=== PATIENT | female | born 1975 | race Hispanic/Latino ===

== ENCOUNTER 2024-09-30 12:13 | Emergency (ER) | payer OTHER, SELFPAY ==
[2024-09-30 12:27] VITALS: BP 153/104
[2024-09-30 12:47] LABS: % Basophils 0.8 % (0-2); % Eosinophils 1.9 % (0-6); % Immature Granulocytes 0.6 % (0-0.5); % Lymphocytes 24.2 % (20.5-51.1); % Monocytes 3.9 % (1.7-9.3); % Neutrophils 68.6 % (42.2-75.2); Absolute Basophils 0.1 10^3/uL (0-0.2); Absolute Eosinophils 0.2 10^3/uL (0-0.7); Absolute Immature Granulocytes 0.1 10^3/uL (0-0.05); Absolute Lymphocytes 2.2 10^3/uL (1.2-3.4); Absolute Monocytes 0.4 10^3/uL (0.1-0.6); Absolute Neutrophils 6.2 10^3/uL (1.4-6.5); Hematocrit 34.1 % (37.0-47.0); Hemoglobin 11.6 g/dL (12.0-16.0); Mean Corpuscular Hgb 28.6 pg (27.0-31.0); Mean Platelet Volume 8.3 fL (7.4-10.4); Nucleated Red Blood Cells % 0 %; Platelet Count 428 10^3/uL (130-400); Red Blood Cell Count 4.06 10^6/uL (4.20-5.40); Red Cell Dist. Width 12.8 % (11.5-14.5); White Blood Cell Count 9.1 10^3/uL (4.8-10.8)
[2024-09-30 13:02] LABS: HCG, Serum Qualitative Screen Negative
[2024-09-30 13:03] LABS: ALT (SGPT) 20 U/L (0-35); AST (SGOT) 23 U/L (14-36); Albumin 3.8 g/dl (3.5-5.0); Alkaline Phosphatase 71 U/L (38-126); Blood Urea Nitrogen 14 mg/dl (7-17); Calcium 9.3 mg/dl (8.4-10.2); Carbon Dioxide 21 mmol/L (22-30); Chloride 108 mmol/L (98-107); Glucose 174 mg/dl (70-99); Potassium 3.7 mmol/L (3.5-5.1); Sodium 138 mmol/L (135-145); Total Bilirubin 0.4 mg/dl (0.2-1.3); Total Protein 6.5 g/dl (6.3-8.2); eGFR > 60.00
[2024-09-30 14:16] VITALS: BP 114/86
--- NOTE | 2024-09-30 14:39 | ED.GENMED ---
History of Present Illness
General
Chief Complaint: Vaginal Bleeding
Source: patient
Exam Limitations: none
Time Seen by Provider: 09/30/24 13:48
Nursing documentation reviewed up to this point in time: agreed with
History of Present Illness
History of Present Illness:
Patient is a 49-year-old female presenting to the emergency department with vaginal bleeding. She reports 3 days of heavy vaginal bleeding along with passing some clots. She is currently in the middle of her OCP pack and should not be bleeding at
this time. She denies any significant abdominal/pelvic pain, nasuea/vomiting, lightheaded/dizziness, or shortness of breath.
Patient does have known fibroids although has not experienced bleeding such as this in the past.
Patient has not been seen by an OBGYN in over 1 year as her physician stopped practicing. She had had abbout 1 year of extra OCP packs at her house. She believes that she in on a combined OCP but is unsure of the name.
No hx of bleeding/clotting disorders.
Past History
Past History
ED Past Medical History: Other (Kidney stones)
ED Past Surgical History:
Social History
Tobacco: Non-smoker
Alcohol: None
Drug: None
Personal:
Living: with family
Employment: Employed
Family History
Family History: Unable to obtain (Patient states her family history is unknown)
Review of Systems
Review of Systems
Allergies reviewed?: Yes
All Other Systems: ROS reviewed and negative except as documented in HPI and ROS
Phy Exam
Physical Exam
Physical Exam:
Vitals: Patient's vital signs are stable by my assessment. Afebrile
General: Patient is very well appearing, no acute distress
Skin: Warm and dry, no rashes or lesions
Head: Normocephalic, atraumatic
Eyes: Sclera nonicteric. EOMs intact. No nystagmus.
Throat: Protecting airway
Neck: Normal ROM, no cervical spine tenderness, no meningismus
Cardiac: Regular rate and rhythm, no murmurs.
Pulm: Normal respiratory effort, no wheezes, rales, rhonchi heard on exam.
Abdomen: Abdomen soft and nontender. No CVA tenderness.
Extremities: No evidence of cyanosis or edema. Palpable DP pulses bilaterally.
Neuro: AAOx3. Grossly intact.
Psychiatric: Normal affect.
Course
Orders/Labs/Results
Orders:
Orders
09/30/24 12:16
Test Result ONCE
09/30/24 12:36
Type+Screen Urgent
Complete Blood Count/With Diff Urgent
Comprehensive Metabolic Panel Urgent
HCG, Serum Qualitative Screen Urgent
Comment: Notify provider if positive test present
09/30/24 14:28
0.9% Sodium Chloride 1000 ml [Nss] 1,000 ml IV BOLUS
Ibuprofen [Motrin] 400 mg PO NOW STA
US Pelvis W Transvag Combined Urgent
Reason For Exam: abnormal uterine bleeding
Abnormal Lab Results
09/30/24
12:36
RBC 4.06 L 10^6/uL
(4.20-5.40)
Hgb 11.6 L g/dL
(12.0-16.0)
Hct 34.1 L %
(37.0-47.0)
Plt Count 428 H 10^3/uL
(130-400)
Abs Immat Gran (auto) 0.1 H 10^3/uL
(0-0.05)
Immature Gran % 0.6 H %
(0-0.5)
Chloride 108 H mmol/L
(98-107)
Carbon Dioxide 21 L mmol/L
(22-30)
Glucose 174 H mg/dl
(70-99)
09/30/24 12:36
09/30/24 12:36
Vital Signs
Initial and Last Documented VS:
Initial Vital Signs
Temp Pulse Resp BP Pulse Ox
98.4 F 116 19 153/104 98
09/30/24 12:27 09/30/24 12:27 09/30/24 12:27 09/30/24 12:27 09/30/24 12:27
Last Documented Vital Signs
Temp Pulse Resp BP Pulse Ox
98.4 F 92 16 122/86 98
09/30/24 12:27 09/30/24 16:17 09/30/24 16:17 09/30/24 16:17 09/30/24 16:17
MDM/Problems Addressed
Differential Diagnosis Includes:
Not limited to: abnormal uterine bleeding secondary to fibroids, menopause, malignancy; spontaneous , ectopic , etc
MDM/Problems Addressed:
Patient is a 49 year-old female presenting with abnormal uterine bleeding for the past few days, although seems to be improving today. No associated fevers, abdominal pain, lightheadedness, or shortness of breath. Patient is on an OCP and has known
history of fibroids. Vitals stable by my assessment. Physical exam as above. Patient well appearing, in no apparent distress. Cardio/pulmonary assessment unremarkable. Patient is perfusing well. Her abdomen is soft and non-tender throughout. Basic
labs were sent in triage and reviewed. Hemoglobin of 11.6. Will obtain pelvic ultrasound and reassess.
Update: US report reviewed which does again demonstrate multiple fibroids. Abnormal uterine bleeding possibly secondary to fibroids although given patient is jonnie menopausal � patient will require outpatient TYPEWR[employer] MECHANIC f/u to ensure resolves and rule out
underlying malignancy. This was discussed w/ patient. Case was discussed with TYPEWRITER MECHANIC educational advisor, Dr. Campos as patient is seeking new TYPEWRITER MECHANIC at this time. Patient hemodynamically stable with no significant bleeding at this time. No evidence of infectious
process. Stable for discharge home w/ outpatient TYPEWRITER MECHANIC follow. Advised to continue OCP as prescibed. Return precautions discussed.
Chronic conditions affecting care:
N/A
Acute Exacerbation and/or Progression of Chronic Illness:
N/A
*Radiology
Radiology exam reviewed: radiology read reviewed
*Pulse Oximetry
Patient hypoxic: no
*EKG
Interpreted by ED Provider?: NA
*Ell Tutor Interpretation
Rate: Ell Tutor- N/A
*Critical Care Note
Total Time (30-74mins, 75-104mins- exclusive of procedures): Not Applicable
Patient Management
Discussion with other providers: Biofuels Processing Technician (Case was discussed with OBGYN - Dr. Campos)
ED Attending Note
-
Portions of this chart may have been created with voice recognition software.� Occasional wrong word or��sound alike� substitutions may have occurred due to the inherent limitations of voice recognition software.
Discharge Plan
Departure
Patient Disposition: Home (Routine Discharge)
Date of Disposition: 09/30/24
Time of Disposition: 17:29
Patient with high blood pressure during this ER visit?: No
Condition: Good
Covid-19: Not Applicable
Discharge Problem:
Vaginal bleeding
Instructions: Heavy Periods (DC), BLOOD PRESSURE
Prescriptions:
No Action
dextroamphetamine-amphetamine [Adderall] 30 MG tablet
30 mg PO DAILY
ciprofloxacin HCl 500 MG tablet
500 mg PO Q12 Qty: 20 0RF
oxycodone-acetaminophen 1 TABLET tablet
1 - 2 tab PO Q4HPRN PRN (Reason: prn for pain) Qty: 20 0RF
cyclobenzaprine 10 MG tablet
10 mg PO TIDPRN PRN (Reason: pain ) Qty: 12 0RF
methylprednisolone [Medrol ([place])] 4 MG tablets,dose pack
4 tab PO . DIRECT Qty: 1 0RF
Referrals:
Nitza Campos MD [Active] - Next open appointment
Rudi Lopez IV, DO [Family Provider] -
Activity Restrictions/Additional Instructions:
Return to the emergency department with any fevers, persistent/heavy vaginal bleeding, shortness of breath, lightheadedness/dizziness, abdominal pain, or any other concerns
- It is important stay well-hydrated. Continue to take your OCP as prescribed
- Follow-up with gynecology, Dr. Campos for further evaluation/management. You may require further imaging/tests. Her contact information been provided for you above.
Monitor your symptoms closely and return to the emergency department with any acute worsening/new symptoms or any other concerns
Interventions
Interventions:
*Risk Screen - Suicide Last Done: 09/30/24 12:27
*General Assessment Last Done: 09/30/24 12:27
*Neglect/Abuse Screening Last Done: 09/30/24 12:27
*ED- Fall Risk Assessment Last Done: 09/30/24 12:27
*ED COVID-19 Vaccine History Last Done: 09/30/24 12:27
*Nursing Disposition Last Done: 09/30/24 17:44
ED-Female Genitourinary Assessment Last Done: 09/30/24 13:39
Discharge Date and Time
Discharge Date/Time: 09/30/24 17:47
Print Language: OCCITAN
[2024-09-30] MEDS: MOTRIN 400 MG PO (14:41)
[2024-09-30] MEDS: NSS 1000 IV (14:42)
[2024-09-30 16:17] VITALS: BP 122/86
== END 2024-09-30 17:47 | disposition home or self-care (01) ==
LOC: EMR 12:13
PROVIDERS: Emergency Medicine; EMERGENCY PHYSICIAN Emergency Medicine; FAMILY PHYSICIAN Family Medicine
DX: N93.9 Abnormal uterine and vaginal bleeding, unspecified (principal); D25.9 Leiomyoma of uterus, unspecified; Z79.3 Long term (current) use of hormonal contraceptives
CPT/HCPCS: 96360; 99284; 76830; 76856; 80053; 84703; 85025; 86850; 86900; 86901